=== PATIENT | female | born 1980 | race African-American/Black ===

== ENCOUNTER 2018-11-06 08:15 | Emergency (ER) | payer OTHER ==
[2018-11-06 08:23] VITALS: BP 115/75; PULSE 84; TEMP 99.2; BMI 29.6
--- NOTE | 2018-11-06 08:31 | PDOC ---
History of Present Illness - General Chief Complaint: Cold Symptoms Stated Complaint: Cold Symptoms Time Seen by Provider: 11/06/18 08:26 History Source: Patient Exam Limitations: No Limitations - History of Present Illness Initial Comments: 11/06/18 08:53 Patient is a 38-year-old female with no past medical history who presents to the emergency department with 5 days of cough, sore throat, congestion, and ear pain. She states that when she coughs it hurts her chest. Patient states she was at work and someone had similar symptoms. She is concerned she may have the flu. She has been taking NyQuil and DayQuil at home with some relief of her symptoms. Denies he wears, chills, body aches, headache, difficulty breathing, chest pain, nausea, vomiting and diarrhea. Past History - Travel Traveled outside of the country in the last 30 days: No Close contact w/someone who was outside of country & ill: No - Past Medical History Allergies/Adverse Reactions: Allergies Allergy/AdvReac Type Severity Reaction Status Date / Time fluconazole [From Diflucan] Allergy Intermediate Verified 08/02/16 02:09 Home Medications: Ambulatory Orders Albuterol Sulfate Inhaler - [Ventolin HFA Inhaler -] 1 - 2 inh PO Q4H #1 inhaler 11/06/18 Fluticasone Prop 0.05% Nasal [Flonase -] 1 - 2 spray NS DAILY #1 spray.pump 06/17 COPD: No DVT: No Dialysis: No - Surgical History Cholecystectomy: No - Immunization History Immunization Up to Date: Yes - Suicide/Smoking/Psychosocial Hx Smoking History: Current every day smoker Have you smoked in the past 12 months: No Number of Cigarettes Smoked Daily: 3 Cigars Per Day: 0 Information on smoking cessation initiated: No 'Breaking Loose' booklet given: 04/24/14 Hx Alcohol Use: No Drug/Substance Use Hx: No Review of Systems - Review of Systems Able to Perform ROS?: Yes Comments:: 11/06/18 08:31 CONSTITUTIONAL: Absent: Fever, chills, body aches, diaphoresis, generalized weakness, malaise, loss of appetite HEENT: Present: rhinorrhea, nasal congestion, throat pain. Absent: difficulty swallowing, mouth swelling, ear pain, eye pain, visual Changes CARDIOVASCULAR: Absent: chest pain, loss of consciousness, palpitations, irregular heart rate, peripheral edema RESPIRATORY: Present: Cough Absent: shortness of breath, dyspnea with exertion, orthopnea, wheezing, stridor, hemoptysis GASTROINTESTINAL: Absent: abdominal pain, abdominal distension, nausea, vomiting, diarrhea, constipation, melena, hematochezia SKIN: Absent: rash, itching, pallor NEUROLOGIC: Absent: headache, focal weakness or paresthesias, dizziness, unsteady gait, seizure, mental status changes, bladder or bowel incontinence Is the patient limited Bhutanese proficient: No *Physical Exam - Vital Signs Last Vital Signs Temp Pulse Resp BP Pulse Ox 99.2 F 84 18 115/75 100 11/06/18 08:20 11/06/18 08:20 11/06/18 08:20 11/06/18 08:20 11/06/18 08:20 - Physical Exam Comments: 11/06/18 08:31 GENERAL: Well developed, well nourished. Awake and alert. No acute distress. HEENT: Normocephalic, atraumatic. PERRLA, EOMI. No conjunctival pallor. Sclera are non- icteric. Moist mucous membranes. Oropharynx is clear. NECK: Supple. Full ROM. No JVD. Carotid pulses 2+ and symmetric, without bruits. No thyromegaly. No lymphadenopathy. CARDIOVASCULAR: Regular rate and rhythm. No murmurs, rubs, or gallops. Distal pulses are 2+ and symmetric. PULMONARY: No evidence of respiratory distress. Lungs with course lung sounds b/l. No wheezing, rales or rhonchi. MUSCULOSKELETAL Normal range of motion at all joints. No bony deformities or tenderness. No CVA tenderness. EXTREMITIES: No cyanosis. No clubbing. No edema. No calf tenderness. SKIN: Warm and dry. Normal capillary refill. No rashes. No jaundice. NEUROLOGICAL: Alert, awake, appropriate. Cranial nerves 2-12 intact. No deficits to light touch and temperature in face, upper extremities and lower extremities. No motor deficits in the in face, upper extremities and lower extremities. Normoreflexic in the upper and lower extremities. Normal speech. Toes are down- going bilaterally. Gait is normal without ataxia. PSYCHIATRIC: Cooperative. Good eye contact. Appropriate mood and affect. Moderate Sedation - Procedure Monitoring Vital Signs: Procedure Monitoring Vital Signs Temperature 99.2 F 11/06/18 08:20 Pulse Rate 84 11/06/18 08:20 Respiratory Rate 18 11/06/18 08:20 Blood Pressure 115/75 11/06/18 08:20 O2 Sat by Pulse Oximetry (%) 100 11/06/18 08:20 Medical Decision Making - Medical Decision Making 11/06/18 08:55 Patient is a 38-year-old female no past medical history who presents to the emergency department today for 5 days of cold-like symptoms. On exam patient is afebrile, well-appearing. Vital signs are stable. Lungs with coarse sounds bilaterally; this is consistent with upper airway congestion. No wheezing rhonchi or rales. Patient is out of range for flu testing and/or Tamiflu. However low suspicion for flu. DuoNeb given for reported chest tightness with relief of symptoms. Will give Flonase as patient reports ear popping. Most likely a URI. Discharge home with supportive therapy instructions. I discussed the physical exam findings, ancillary test results and final diagnoses with the patient. I answered all of the patient's questions. The patient was satisfied with the care received and felt comfortable with the discharge plan and treatment plan. The Patient agrees to follow up with the primary care physician/specialist within 24-72 hours. Return precautions were given. *DC/Admit/Observation/Transfer Diagnosis at time of Disposition: Upper respiratory infection Qualifiers: URI type: unspecified viral URI Qualified Code(s): J06.9 - Acute upper respiratory infection, unspecified - Discharge Dispostion Disposition: HOME Condition at time of disposition: Stable Decision to Admit order: No - Prescriptions Prescriptions: Albuterol Sulfate Inhaler - [Ventolin HFA Inhaler -] 1 - 2 inh PO Q4H #1 inhaler Fluticasone Prop 0.05% Nasal [Flonase -] 1 - 2 spray NS DAILY #1 spray.pump - Referrals Referrals: Amanuel Youngblood MD [Staff Physician] - - Patient Instructions Printed Discharge Instructions: DI for Viral Upper Respiratory Infection -- Adult Additional Instructions: You have an upper respiratory infection, or the common cold. Please take Motrin 800 mg every 8 hours as needed for pain not to exceed 3000 mg a day. You may take the albuterol inhaler, one puff every four hours as needed for chest tightness You may use the flonase one spray in each nostril twice a day You may continue the dayquil and nyquil. Follow the instructions on the bottle. Drink plenty of fluids. Cough drops and warm tea may help your symptoms as well. Please follow up with her primary care doctor this week. Return to the emergency department if you have difficulty breathing, shortness of breath, worsening pain, nausea, vomiting or if you have any changes in your symptoms. - Post Discharge Activity Forms/Work/School Notes: Back to Work
[2018-11-06] MEDS ORDERED: ALBUTEROL SO4 2.5/IPRATROPIUM 0.5 INH SOL 3 ML VIAL.NEB. NEB ONE ×2 (08:46→08:50)
== END 2018-11-06 09:09 | disposition home or self-care (01) ==
LOC: JERFT 08:15
PROC: 3E0F7GC Introduction of Other Therapeutic Substance into Respiratory Tract, Via Natural or Artificial Opening (ICD-10-PCS; principal; 2018-11-06)
DX: J06.9 Acute upper respiratory infection, unspecified (principal)
CPT/HCPCS: 99281-25

== ENCOUNTER 2019-08-15 11:00 | Emergency (ER) | payer OTHER ==
[2019-08-15 11:06] VITALS: BP 123/86; PULSE 95; TEMP 98.2; BMI 28.7
--- NOTE | 2019-08-15 11:38 | PDOC ---
History of Present Illness - General Chief Complaint: Urinary Problem Stated Complaint: Urinary problem Time Seen by Provider: 08/15/19 11:27 History Source: Patient Exam Limitations: No Limitations - History of Present Illness Travel History: No Initial Comments: 08/15/19 11:36 States woke up this morning with frequency, burning and noted a small amount of blood in her urine. Has suffered from urinary tract infections before and thinks has same. No vaginal discharge, no fevers or back pain. Timing/Duration: reports: constant Quality: reports: mild, moderate Pain Radiation: reports: no radiation Past History - Travel Traveled outside of the country in the last 30 days: No Close contact w/someone who was outside of country & ill: No - Past Medical History Allergies/Adverse Reactions: Allergies Allergy/AdvReac Type Severity Reaction Status Date / Time fluconazole [From Diflucan] Allergy Intermediate Verified 08/02/16 02:09 Home Medications: Ambulatory Orders Cephalexin Monohydrate [Keflex -] 500 mg PO Q8H #21 capsule 08/15/19 Phenazopyridine HCl [Pyridium] 200 mg PO Q8H #10 tablet 08/15/19 Valacyclovir HCl [Valtrex -] 500 mg PO DAILY 08/15/19 COPD: No DVT: No Dialysis: No - Surgical History Cholecystectomy: No - Reproductive History Is Patient Now?: No - Immunization History Immunization Up to Date: No - Psycho Social/Smoking Cessation Hx Smoking History: Never smoked Have you smoked in the past 12 months: No Number of Cigarettes Smoked Daily: 3 Cigars Per Day: 0 Information on smoking cessation initiated: No 'Breaking Loose' booklet given: 04/24/14 Hx Alcohol Use: No Drug/Substance Use Hx: No Review of Systems - Review of Systems Able to Perform ROS?: Yes Is the patient limited Guamanian proficient: Yes Constitutional: Yes: Symptoms Reported, See HPI, Malaise. No: Chills, Fever HEENTM: Yes: See HPI. No: Symptoms Reported Respiratory: Yes: See HPI. No: Symptoms reported ABD/GI: Yes: Symptoms Reported : Yes: Symptoms Reported, See HPI, Burning, Dysuria, Frequency, Hematuria Musculoskeletal: No: Symptoms Reported All Other Systems: Reviewed and Negative *Physical Exam - Vital Signs Last Vital Signs Temp Pulse Resp BP Pulse Ox 98.2 F 95 H 18 123/86 100 08/15/19 11:04 10/17/19 11:04 08/15/19 11:04 08/15/19 11:04 08/15/19 11:04 - Physical Exam General Appearance: Yes: Nourished, Appropriately Dressed. No: Apparent Distress HEENT: positive: JEANNA, Normal ENT Inspection, TMs Normal, Pharynx Normal Neck: negative: Tender Respiratory/Chest: positive: Lungs Clear, Normal Breath Sounds Gastrointestinal/Abdominal: positive: Normal Bowel Sounds, Soft. negative: Tender, Distended, Guarding, Rebound Extremity: positive: Normal Capillary Refill, Normal Inspection Integumentary: positive: Dry, Warm, Pale Neurologic: positive: automotive refinisher II-XII NML intact, Fully Oriented, Alert, Normal Mood/ Affect, Normal Response, Motor Strength 03/03 ED Progress Note - Progress Note Progress Note: 08/15/19 12:00 Urinary tract infection, will treat with Keflex, provided prescription for Pyridium, and will follow-up with PMD as needed Discharge - Discharge Information Problems reviewed: Yes Clinical Impression/Diagnosis: Urinary tract infection Qualifiers: Urinary tract infection type: acute cystitis Hematuria presence: with hematuria Qualified Code(s): N30.01 - Acute cystitis with hematuria Condition: Stable Disposition: HOME - Admission No - Additional Discharge Information Prescriptions: Cephalexin Monohydrate [Keflex -] 500 mg PO Q8H #21 capsule Phenazopyridine HCl [Pyridium] 200 mg PO Q8H #10 tablet - Follow up/Referral - Patient Discharge Instructions Patient Printed Discharge Instructions: DI for Urinary Tract Infection (UTI) Additional Instructions: Rest, drink lots of fluids: Teas, water, soups Avoid contact with others until fevers and symptoms resolved Lots of handwashing and good hygiene Continue [id number] medications for symptomatic relief Tylenol or Motrin for fever and pain Continue all of antibiotics until completed Followup with private physician in one week for repeat urinalysis/reevaluation Return to emergency department for worsened symptoms, fevers, dehydration - Post Discharge Activity Work/Back to School Note: Back to Work
[2019-08-15 11:52] LABS: HYALINE CASTS 7 /lpf (0-8); URINE APPEARANCE TURBID; URINE BACTERIA 334.9 /hpf (NEGATIVE); URINE BILIRUBIN NEGATIVE (NEGATIVE); URINE COLOR YELLOW; URINE GLUCOSE (UA) NEGATIVE (NEGATIVE); URINE KETONE TRACE (NEGATIVE); URINE LEUK ESTERASE 3+ (NEGATIVE); URINE NITRITE NEGATIVE (NEGATIVE); URINE PROTEIN 1+ (NEGATIVE); URINE RBC 1305 /hpf (0-4); URINE WBC 498 /hpf (0-5)
== END 2019-08-15 12:02 | disposition home or self-care (01) ==
LOC: JERFT 11:00
DX: N30.01 Acute cystitis with hematuria (principal); Z88.8 Allergy status to other drugs, medicaments and biological substances
CPT/HCPCS: 81003; 84703; 87086; 87186; 99282-25

== ENCOUNTER 2020-08-01 13:20 | Emergency (ER) | payer OTHER ==
[2020-08-01 13:33] VITALS: BP 136/81; PULSE 100; TEMP 97.8; BMI 28.1
--- OUTSIDE RECORDS SUMMARY | 2020-08-01 13:33 | XMS ---
:1980 Author Organization [facility] Care Team Providers Name Role Phone DELANEY DUMAS Unavailable Unavailable ABILIORODNEY CHUA Unavailable Unavailable Re-disclosure Warning The records that you are about to access may contain information from federally- assisted alcohol or drug abuse programs. If such information is present, then the following federally mandated warning applies: This information has been disclosed to you from records protected by federal confidentiality rules (42 CFR part 2). The federal rules prohibit you from making any further disclosure of this information unless further disclosure is expressly permitted by the written consent of the person to whom it pertains or as otherwise permitted by 42 CFR part 2. A general authorization for the release of medical or other information is NOT sufficient for this purpose. The Federal rules restrict any use of the information to criminally investigate or prosecute any alcohol or drug abuse patient.The records that you are about to access may contain highly sensitive health information, the redisclosure of which is protected by Article 27-F of the [facility] Public Health law. If you continue you may haveaccess to information: Regarding HIV / AIDS; Provided by facilities licensed or operated by the [facility] Office of Mental Health; or Provided by the [facility] Office for People With Developmental Disabilities. If such information is present, then the following [facility] mandated warning applies: This information has been disclosed to you from confidential records which are protected by state law. State law prohibits you from making any further disclosure of this information without the specific written consent of the person to whom it pertains, or as otherwise permitted by law. Any unauthorized further disclosure in violation of state law may result in a fine or nursing home sentence or both. A general authorization for the release of medical or other information is NOT sufficient authorization for further disclosure. Encounters Encounter Providers Location Date Indications Data Source(s ) Emergency Attender: ALESIA 06/26/2019 SENT BY PCP [facility] TAYOINAdmitter: 02:58:00 AM [facility] DELANEY DUMAS [employer] SENT BY PCP Emergency Attender: RUIZ [facility] 01:[facility] AM [facility] [employer] BLOOD IN URINE Insurance Providers Payer name Policy type Policy ID Covered Covered alliance party's Policy P gilberto / Coverage alliance party ID relationship to [employer] type [place] [id number] HEALTH CARE HMO/POS/EPO Problems, Conditions, and Diagnoses Code Display Name Description Problem Type Effective Data Sour ce(s) Dates Z32.02 Encounter for ENCOUNTER FOR Diagnosis 06/26/2019 [facility] test, TEST, 02:58:00 AM [facility] result negative RESULT NEGATIVE [employer] Z87.440 Personal history PERSONAL HISTORY Diagnosis 06/26/2019 [facility] of urinary OF URINARY 02:58:00 AM [facility] (tract) (TRACT) [employer] on infections INFECTIONS R30.0 Dysuria DYSURIA Diagnosis 06/26/2019 [place] 02:58:00 AM [facility] [employer] on R35.0 Frequency of FREQUENCY OF Diagnosis 06/26/2019 [facility] r micturition MICTURITION 02:58:00 AM [facility] [employer] on Z88.8 Allergy status to ALLERGY STATUS TO Diagnosis 06/20/2019 [place] other drugs, OTH 01:40:00 AM [facility] medicaments and DRUG/MEDS/BIOL [employer] biological SUBST STATUS substances status N39.0 Urinary tract URINARY TRACT Diagnosis 06/20/2019 [facility] infection, site INFECTION, SITE 01:40:00 AM [facility] not specified NOT SPECIFIED [employer] R31.9 Hematuria, HEMATURIA, Diagnosis 06/20/2019 [place] unspecified UNSPECIFIED 01:40:00 AM [facility] [employer] on
[2020-08-01] MEDS ORDERED: diazePAM 5 MG TABLET PO ONE (13:54)
[2020-08-01] MEDS ORDERED: KETOROLAC TROMETHAMINE 30 MG/1 ML VIAL IM ONE (13:54)
[2020-08-01] MEDS ORDERED: LIDOCAINE 5% TOPICAL PATCH TP ONE (13:56)
--- NOTE | 2020-08-01 14:04 | PDOC ---
History of Present Illness - General Chief Complaint: Back Pain Stated Complaint: BACK PAIN S.P FALL History Source: Patient Exam Limitations: No Limitations - History of Present Illness Initial Comments: 08/01/20 13:57 Patient is a 40-year-old female with no past medical history here with complaints of lower back pain since 5 AM this morning. States that she was walking in her apartment and turned a corner slipped and fell to the right side. States she got straight up from the floor and had a sudden onset of lower back pain which radiated to her buttocks bilaterally. States pain is 7.5/10 and w orse with movement. States she is unable to stand straight due to the pain. She has taken nothing for the pain. States she feels some numbness in the b/l thighs anteriorly. No saddle anesthesia, no bowel or bladder incontinence. PMD: Dr Rios PMHX: as above PSOCHX: neg cig, drug, etoh ALL: Diflucan GENERAL/CONSTITUTIONAL: [No fever or chills. No weakness. No weight change.] HEAD, EYES, EARS, NOSE AND THROAT: [No change in vision. No ear pain or discharge. No sore throat.] GENITOURINARY: [No dysuria, frequency, or change in urination.] MUSCULOSKELETAL: [No joint or muscle swelling or pain. No neck, (+) back pain.] SKIN AND BREASTS: [No rash or easy bruising.] NEUROLOGIC: [No headache, vertigo, loss of consciousness, or loss of sensation.] ENDOCRINE: [No increased thirst. No abnormal weight change.] HEMATOLOGIC/LYMPHATIC: [No anemia, easy bleeding, or history of blood clots.] ALLERGIC/IMMUNOLOGIC: [No hives or skin allergy. No latex allergy.] GENERAL: [The patient is awake, alert, and fully oriented, in no acute distress.] HEAD: [Normal with no signs of trauma.] EYES: [Pupils equal, round and reactive to light, extraocular movements intact, sclera anicteric, conjunctiva clear.] ENT: [Ears normal, nares patent, oropharynx clear without exudates. Moist mucous membranes.] NECK: [Normal range of motion, supple without lymphadenopathy, JVD, or masses.] ABDOMEN: [Soft, nontender, normoactive bowel sounds. No guarding, no rebound. No masses.] BACK: Tenderness midline lumbar spine and paraspinal bilateral. EXTREMITIES: [Normal range of motion, no edema. No clubbing or cyanosis. No cords, erythema, or tenderness.] NEUROLOGICAL: [Cranial nerves II through XII grossly intact. Normal speech, gait not tested, straight leg raise to 10 degrees.] SKIN: [Warm, Dry, normal turgor, no rashes or lesions noted.] Past History - Medical History Allergies/Adverse Reactions: Allergies Allergy/AdvReac Type Severity Reaction Status Date / Time fluconazole [From Diflucan] Allergy Intermediate Verified 08/01/20 13:21 Home Medications: Ambulatory Orders Cephalexin Monohydrate [Keflex -] 500 mg PO Q8H #21 capsule 08/15/19 Phenazopyridine HCl [Pyridium] 200 mg PO Q8H #10 tablet 08/15/19 Valacyclovir HCl [Valtrex -] 500 mg PO DAILY 08/15/19 Miconazole/Cleanser 17 On Wipe [Miconazole 3 Kit] 1 each VG DAILY #1 kit 01/15/20 metroNIDAZOLE [Flagyl -] 500 mg PO BID #14 tablet 01/15/20 Cyclobenzaprine HCl [Flexeril -] 10 mg PO TID #30 tablet 08/01/20 Ibuprofen [Motrin -] 600 mg PO QID #28 tablet 08/01/20 COPD: No DVT: No Dialysis: No Other medical history: DENIES - Surgical History Cholecystectomy: No - Reproductive History Is Patient Now?: No - Immunization History Immunization Up to Date: No - Psycho-Social/Smoking History Smoking History: Never smoked Have you smoked in the past 12 months: No Number of Cigarettes Smoked Daily: 3 Cigars Per Day: 0 'Breaking Loose' booklet given: 04/24/14 - Substance Abuse Hx (Audit-C & DAST Scrn) How often the patient has a drink containing alcohol: Never Score: In Men: 4 or > Positive; In Women: 3 or > Positive: 0 Screen Result (Pos requires Nsg. Audit-10AR): Negative In the last yr the pt used illegal drug/Rx for NonMed reason: No Score: Yes response is considered Positive: 0 Screen Result (Positive result requires Nsg. DAST-10): Negative *Physical Exam - Vital Signs Last Vital Signs Temp Pulse Resp BP Pulse Ox 97.8 F 100 H 18 136/81 100 10/03/20 13:22 08/01/20 13:22 08/01/20 13:22 08/01/20 13:22 08/01/20 13:22 ED Treatment Course - RADIOLOGY Radiology Studies Ordered: Category Date Time Status SPINE-LUMBAR SACRAL [RAD] Stat Radiology 08/01/20 13:54 Ordered Medical Decision Making - Medical Decision Making 08/01/20 13:57 Patient is a 40-year-old female with no past medical history here with complaints of lower back pain since 5 AM this morning. States that she was walking in her apartment and turned a corner slipped and fell to the right side. States she got straight up from the floor and had a sudden onset of lower back pain which radiated to her buttocks bilaterally. States pain is 7.5/10 and worse with movement. States she is unable to stand straight due to the pain. She has taken nothing for the pain. States she feels some numbness in the b/l thighs anteriorly. No saddle anesthesia, no bowel or bladder incontinence. Low back pain Pain meds, Lidoderm patch and a muscle relaxant X-ray lumbar spine 08/01/20 14:53 Patient feels improved of pain. I discussed the physical exam findings, ancillary test results and final diagnoses with the patient. I answered all of the patient's questions. The patient was satisfied with the care received and felt comfortable with the discharge plan and treatment plan. The Patient agrees to follow up with the primary care physician within 24-72 hours. Discharge - Discharge Information Problems reviewed: Yes Clinical Impression/Diagnosis: Low back pain Qualifiers: Chronicity: acute Back pain laterality: bilateral Sciatica presence: unspecified whether sciatica present Qualified Code(s): M54.5 - Low back pain Condition: Stable Disposition: HOME - Additional Discharge Information Prescriptions: Cyclobenzaprine HCl [Flexeril -] 10 mg PO TID #30 tablet Ibuprofen [Motrin -] 600 mg PO QID #28 tablet - Follow up/Referral Referrals: Martin Lagunas MD [Staff Physician] - - Patient Discharge Instructions Patient Printed Discharge Instructions: DI for Low Back Pain Additional Instructions: Your Discharge Instructions: You must call primary care physician within 24 hours to arrange follow-up. Return to the Emergency Department with any new, persistent or worsening symptoms, for fever, chills, SOB, dizziness or any other concerning changes that may occur. Follow-up with orthopedist call for an appointment if symptoms worsen or do not improve - Post Discharge Activity Work/Back to School Note: Back to Work
[2020-08-01] MEDS ORDERED: LIDOCAINE PATCH REMOVAL MC SCH (22:00)
== END 2020-08-01 14:59 | disposition home or self-care (01) ==
LOC: JER 13:20
PROC: 3E0233Z Introduction of Anti-inflammatory into Muscle, Percutaneous Approach (ICD-10-PCS; principal; 2020-08-01)
DX: M54.5 Low back pain (principal)
CPT/HCPCS: 72100-TC-FY; 99284-25

== ENCOUNTER 2022-09-17 00:42 | Emergency (ER) | payer OTHER ==
[2022-09-17 00:55] VITALS: RESP 18; BMI 29.0
[2022-09-17] MEDS ORDERED: SODIUM CHLORIDE 0.9% 500 ML INFUS.BAG IV ONE (01:28)
[2022-09-17] MEDS ORDERED: ACETAMINOPHEN 1000 MG/100 ML BAG IVPB ONE (01:29)
[2022-09-17] MEDS ORDERED: ACETAMINOPHEN INJECTION 100 ML IVPB ONE (02:05)
[2022-09-17 02:29] LABS: BASO % 0.4 % (0-2.0); EOS % 0.2 % (0-4.5); HEMOGLOBIN 12.6 GM/dL (10.7-15.3); LYMPH % 13.8 % (8-40); MCH 35.5 pg (25.7-33.7); MEAN CELL VOLUME 104.3 fl (80-96); MEAN PLT VOLUME 6.7 fl (7.5-11.1); MONO % 8.6 % (3.8-10.2); PLATELET COUNT 350 10^3/uL (134-434); RBC 3.55 M/mm3 (3.60-5.2); RDW 13.2 % (11.6-15.6); WHITE BLOOD COUNT 9.6 K/mm3 (4.0-10.0)
[2022-09-17 02:38] LABS: INR 1.05 (0.83-1.09); PROTHROMBIN TIME (PATIENT) 12.1 SEC (9.7-13.0)
[2022-09-17 02:48] LABS: CHLORIDE 106 mmol/L (98-107); SODIUM 140 mmol/L (136-145)
[2022-09-17 02:50] LABS: CALCIUM 8.7 mg/dL (8.5-10.1)
[2022-09-17] MEDS ORDERED: morphine SULFATE 4 MG/ML VIAL ONE (02:50)
[2022-09-17] MEDS ORDERED: ONDANSETRON 4 MG/2 ML VIAL ONE (02:50)
[2022-09-17] MEDS ORDERED: morphine CARPU-JECT 4 MG/1 ML DISP.SYRIN IVPUSH ONE (02:50)
[2022-09-17] MEDS ORDERED: KETOROLAC TROMETHAMINE 15 MG/ML VIAL IVPUSH ONE (02:50)
[2022-09-17] MEDS ORDERED: ONDANSETRON 4 MG/2 ML VIAL IVPUSH ONE (02:50)
[2022-09-17 02:51] LABS: ALBUMIN 3.9 g/dl (3.4-5.0); ANION GAP 7 MMOL/L (8-16); BLOOD UREA NITROGEN 17.4 mg/dL (7-18); CO2 27 mmol/L (21-32); GLUCOSE,RANDOM 100 mg/dL (74-106)
[2022-09-17 02:54] LABS: CREATININE 1.1 mg/dL (0.55-1.3); SGOT/AST 11 U/L (15-37); SGPT/ALT 15 U/L (13-61)
[2022-09-17 02:55] LABS: BILIRUBIN,TOTAL 0.4 mg/dL (0.2-1); TOT PROT 7.5 g/dl (6.4-8.2)
[2022-09-17 02:57] LABS: ALK PHOS 54 U/L (45-117)
[2022-09-17] MEDS ORDERED: KETOROLAC TROMETHAMINE 15 MG/ML VIAL ONE (03:14)
[2022-09-17 05:01] LABS: EPI CELLS 31 /uL (0-25.1); HYALINE CASTS 0 /uL (0-3.1); PH,URINE 7.5 (5.0-8.0); URINE APPEARANCE CLEAR; URINE BACTERIA 140 /uL (0-1359); URINE BILIRUBIN NEGATIVE (NEGATIVE); URINE COLOR YELLOW; URINE GLUCOSE (UA) NEGATIVE (NEGATIVE); URINE KETONE 1+ (NEGATIVE); URINE LEUK ESTERASE NEGATIVE (NEGATIVE); URINE NITRITE NEGATIVE (NEGATIVE); URINE PROTEIN TRACE (NEGATIVE); URINE RBC 761 /uL (0-23.9); URINE WBC 17 /uL (0-25.8)
[2022-09-17 05:55] VITALS: BP 120/81; PULSE 80; TEMP 98
[2022-09-17 05:57] LABS: BASO % 0.2 % (0-2.0); HEMATOCRIT 34.8 % (32.4-45.2); HEMOGLOBIN 11.4 GM/dL (10.7-15.3); LYMPH % 5.6 % (8-40); MCH 34.3 pg (25.7-33.7); MCHC 32.9 g/dl (32.0-36.0); MEAN CELL VOLUME 104.4 fl (80-96); MEAN PLT VOLUME 7.3 fl (7.5-11.1); MONO % 6.1 % (3.8-10.2); NEUT % 88.1 % (42.8-82.8); PLATELET COUNT 334 10^3/uL (134-434); RBC 3.33 M/mm3 (3.60-5.2); RDW 13.1 % (11.6-15.6); WHITE BLOOD COUNT 11.9 K/mm3 (4.0-10.0)
== END 2022-09-17 07:30 | disposition home or self-care (01) ==
LOC: JER 00:42
PROC: 3E0333Z Introduction of Anti-inflammatory into Peripheral Vein, Percutaneous Approach (ICD-10-PCS; principal; 2022-09-17)
PROC: 3E0333Z Introduction of Anti-inflammatory into Peripheral Vein, Percutaneous Approach (ICD-10-PCS; 2022-09-17)
PROC: 3E033NZ Introduction of Analgesics, Hypnotics, Sedatives into Peripheral Vein, Percutaneous Approach (ICD-10-PCS; 2022-09-17)
PROC: 3E033GC Introduction of Other Therapeutic Substance into Peripheral Vein, Percutaneous Approach (ICD-10-PCS; 2022-09-17)
DX: N83.202 Unspecified ovarian cyst, left side (principal); R07.9 Chest pain, unspecified
CPT/HCPCS: 36415; 76830-TC; 80053; 81003; 83690; 84702; 85025; 85610; 99284-25

== ENCOUNTER 2023-08-11 21:14 | Emergency (ER) | payer OTHER ==
[2023-08-11 21:23] VITALS: BP 133/78; PULSE 94; RESP 18; TEMP 98.2; BMI 29.0
[2023-08-11] MEDS ORDERED: ACETAMINOPHEN 500 MG TABLET (FP) PO ONE (22:10)
[2023-08-11] MEDS ORDERED: KETOROLAC TROMETHAMINE 30 MG/1 ML VIAL IM ONE (22:10)
[2023-08-11] MEDS ORDERED: KETOROLAC TROMETHAMINE 30 MG/1 ML VIAL ONE (22:16)
[2023-08-11] MEDS ORDERED: ACETAMINOPHEN 500 MG TABLET (FP) ONE (22:17)
== END 2023-08-11 22:52 | disposition home or self-care (01) ==
LOC: JER 21:14 → JERFT 21:14 → JER 22:52
PROC: 3E0233Z Introduction of Anti-inflammatory into Muscle, Percutaneous Approach (ICD-10-PCS; principal; 2023-08-11)
DX: M54.50 Low back pain, unspecified (principal); M54.2 Cervicalgia; S16.1XXA Strain of muscle, fascia and tendon at neck level, initial encounter; V49.40XA Driver injured in collision with unspecified motor vehicles in traffic accident, initial encounter; Y92.410 Unspecified street and highway as the place of occurrence of the external cause
CPT/HCPCS: 73562-TC-RT-FY; 99284-25

== ENCOUNTER 2023-10-08 18:21 | Emergency (ER) | payer OTHER ==
[2023-10-08 18:33] VITALS: BP 115/80; PULSE 85; RESP 18; TEMP 98.6; BMI 29.7
[2023-10-08] MEDS ORDERED: IBUPROFEN 600 MG TABLET (FP) PO ONE ×3 (21:28→21:32)
== END 2023-10-08 22:54 | disposition home or self-care (01) ==
LOC: JERFT 18:21
DX: M65.4 Radial styloid tenosynovitis [de Quervain] (principal)
CPT/HCPCS: 73110-TC-RT-FY; 99283-25

== ENCOUNTER 2024-04-26 20:51 | Emergency (ER) | payer OTHER ==
[2024-04-26 20:55] VITALS: BP 135/86; PULSE 90; RESP 18; TEMP 98.5; BMI 31.4
[2024-04-26] MEDS ORDERED: BACITRACIN ZINC 15 GM TUBE TOPICAL OINTMENT TP ONE (21:20)
[2024-04-26] MEDS ORDERED: ACETAMINOPHEN 325 MG TABLET (FP) ONE (21:32)
[2024-04-26] MEDS ORDERED: BACITRACIN ZINC 15 GM TUBE TOPICAL OINTMENT ONE (21:32)
[2024-04-26] MEDS: ACETAMINOPHEN 325 MG TABLET (FP) PO ONE (21:35)
== END 2024-04-26 22:06 | disposition home or self-care (01) ==
LOC: JERFT 20:51
DX: S91.001A Unspecified open wound, right ankle, initial encounter (principal); W20.8XXA Other cause of strike by thrown, projected or falling object, initial encounter
CPT/HCPCS: 99283-25